=== PATIENT | female | born 1955 | race African-American/Black ===

== ENCOUNTER → 2021-10-08 | Outpatient (CLI) | payer OTHER, MEDICARE, MEDICAID ==
--- NOTE | 2021-10-08 16:39 | KCIC ---
EXAMINATION: Magnetic resonance imaging (MRI) of the lumbar spine without contrast 10/08/2021 11:45 AM HISTORY: Acute bilateral low back pain with sciatica TECHNIQUE: Multiplanar multi-weighted MRI of the lumbar spine was performed without intravenous contr ast using the standard lumbar spine protocol. Contrast information: None administered. COMPARISON: None available. FINDINGS: There is 1 mm anterolisthesis of L2 on L3. There is 1 mm retrolisthesis of L4 on L5. Vertebral bodies demonstrate normal signal intensity on all sequences. There are no compression fractures. The conu s medullaris terminates at the level of L1. The distal spinal cord signal intensity is normal. Inter vertebral disks have normal height and signal intensity. There are no annular fissures identified. L imited views of the abdomen and pelvis show no soft tissue abnormality. The aorta is normal. L1-L2: There is a circumferential disc bulge. Mild left facet arthropathy. Mild neural femoral stenos is. Mild spinal canal stenosis. L2-L3: There is no significant disc herniation. Moderate facet arthropathy, right greater than left. No significant neuroforaminal or spinal canal stenosis. L3-L4: There is a circumferential disc bulge. Mild facet arthropathy. Mild right neural foraminal angel nosis. Mild spinal canal stenosis. L4-L5: There is a circumferential disc bulge asymmetric to the left. Moderate left facet arthropathy. Moderate left neural foraminal stenosis. Mild spinal canal stenosis. L5-S1: There is a disc bulge asymmetric to the left. Moderate left facet arthropathy. Moderate left n eural foraminal stenosis. No spinal canal stenosis. 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 Electronically signed by: Raissa Chávez MD (10/08/2021 4:37 PM) [id number]
== END ==
LOC: KCIC MRI 11:36
PROVIDERS: ATTEND Family Medicine
DX: M47.816 Spondylosis without myelopathy or radiculopathy, lumbar region (principal); M51.27 Other intervertebral disc displacement, lumbosacral region; M48.8X7 Other specified spondylopathies, lumbosacral region; M48.07 Spinal stenosis, lumbosacral region; M43.16 Spondylolisthesis, lumbar region; M54.40 Lumbago with sciatica, unspecified side
CPT/HCPCS: 72148